=== PATIENT | male | born 1945 | race Caucasian/White ===

== ENCOUNTER 2017-08-11 14:36 | Inpatient (IN) | payer MEDICARE ==
[~2017-08-11] VITALS: Ht 172.7 cm; Wt 87.1 kg
[2017-08-11 14:40] VITALS: BP 99/51; PULSE 65; RESP 18; TEMP 97.9; O2SAT 96
--- NOTE | 2017-08-11 16:04 | PD ---
HPI Chief Complaint: Cold / Flu Symptoms Time Seen by Provider: 16:01 Travel History International Travel<30 days: No Contact w/Intl Traveler<30days: No Traveled to known affect area: No History of Present Illness HPI 72-year-old male came to the emergency room with history of generalized weakness , progressive worsening of not feeling well, sore throat and cough. No history of vomiting or diarrhea. Patient has been having chills and right years as per the . The here has been giving him more elaborate history. Patient appears to be tired and in some distress. Initial vital signs showed blood pressure of 99 systolic. No known sick contacts. No recorded temperature at home. He has been urinating less than usual lately. says he has been very thirsty and drinking a lot of fluid. [facility] Past Medical History Narrative Medical List of his past medical, surgical, social and family history is reviewed from the nursing note. Cardiovascular Problems: Yes Respiratory: Yes Social History Tobacco Use: Yes Allergies-Medications (Allergen,Severity, Reaction): Coded Allergies: No Known Allergies (Unverified , 08/11/17) Comments No known drug allergies. Reported Meds & Prescriptions Reported Meds & Active Scripts Active Reported Advair Diskus Inh (Fluticasone-Salmeterol Inh) 100-50 Mcg/Blist Aer 1 Puff INH BID Rinse mouth after use. Jhrsnmwtbw-Sgcwqujtu-Lnhildvlabhestebqjm 5-160-12.5 Mg Tab 1 Tab PO DAILY Atorvastatin (Atorvastatin Calcium) 40 Mg Tab 40 Mg PO HS Finasteride 5 Mg Tab 5 Mg PO DAILY Do not crush. Nexium (Esomeprazole DR) 40 Mg Capdr 40 Mg PO DAILY Narrative Medication List of her home medications reviewed from the nursing note Review of Systems Except as stated in HPI: all other systems reviewed are Neg Physical Exam Narrative GENERAL: Awake, alert, moderate distress SKIN: Focused skin assessment warm/dry. HEAD: Atraumatic. Normocephalic. EYES: Pupils equal and round. No scleral icterus. No injection or drainage. ENT: No nasal bleeding or discharge. Tongue coated, dry, raw and erythematous pharynx NECK: Trachea midline. No JVD. CARDIOVASCULAR: Regular rate and rhythm. No murmur appreciated. RESPIRATORY: No accessory muscle use. Clear to auscultation. Breath sounds equal bilaterally. GASTROINTESTINAL: Abdomen soft, non-tender, nondistended. Hepatic and splenic margins not palpable. MUSCULOSKELETAL: No obvious deformities. No clubbing. No cyanosis. No edema. NEUROLOGICAL: Awake and alert. No obvious cranial nerve deficits. Motor grossly within normal limits. Normal speech. PSYCHIATRIC: Appropriate mood and affect; insight and judgment normal. Data Data Last Documented VS Orders Orders Complete Blood Count With Diff (08/11/17 16:01) Basic Metabolic Panel (Bmp) (08/11/17 16:01) Urinalysis - C+S If Indicated (08/11/17 16:01) Blood Culture (08/11/17 16:01) Iv Access Insert/Monitor (08/11/17 16:01) Electrocardiogram (08/11/17 16:01) Ecg Monitoring (08/11/17 16:) Oximetry (08/11/17 16:01) Oxygen Administration (08/11/17 16:01) Chest, Single Ap (08/11/17 16:01) Sodium Chloride 0.9% Flush (Ns Flush) (08/11/17 16:15) Group A Rapid Strep Screen (08/11/17 16:01) Sodium Chlor 0.9% 1000 Ml Inj (Ns 1000 M (08/11/17 16:15) Blood Glucose (08/11/17 16:01) Troponin I (08/11/17 16:04) Ceftriaxone Inj (Rocephin Inj) (08/11/17 16:45) Azithromycin Inj (Zithromax Inj) (08/11/17 16:45) Sodium Chlor 0.9% 1000 Ml Inj (Ns 1000 M (08/11/17 16:45) Lactic Acid (08/11/17 16:41) Strep Culture (Group A) (08/11/17 16:10) Admit To Inpatient (08/11/17 ) Code Status (08/11/17 18:09) Vital Signs (Adult) Q4H (08/11/17 18:09) Activity Oob Ad Ashleigh (08/11/17 18:09) Loom Tuner / Telemetry .CONTINUOUS (08/11/17 18:09) Intake + Output FILI.QSHIFT (08/11/17 18:09) Notify Dr: Other (08/11/17 18:09) Diet Heart Healthy (08/11/17 Dinner) Sodium Chlor 0.9% 1000 Ml Inj (Ns 1000 M (08/11/17 18:09) Sodium Chloride 0.9% Flush (Ns Flush) (08/11/17 18:15) Sodium Chloride 0.9% Flush (Ns Flush) (08/11/17 21:00) Acetaminophen (Tylenol) (08/11/17 18:15) Ondansetron Inj (Zofran Inj) (08/11/17 18:15) Creatine Kinase (Cpk) (08/11/17 18:09) Troponin I (08/11/17 18:09) Case Management Consult (08/11/17 18:09) Heparin Inj (Heparin Inj) (08/11/17 20:00) Naloxone Inj (Narcan Inj) (08/11/17 18:15) Docusate Sodium-Senna (Carey-Colace) (08/11/17 21:00) Magnesium Hydroxide Liq (Milk Of Magnesi (08/11/17 18:15) Sennosides (Senokot) (08/11/17 18:15) Bisacodyl Supp (Dulcolax Supp) (08/11/17 18:15) Lactulose Liq (Lactulose Liq) (08/11/17 18:15) Inpatient Certification (08/11/17 ) Ceftriaxone Inj (Rocephin Inj) (08/12/17 18:00) Azithromycin Inj (Zithromax Inj) (08/12/17 17:00) Admit Order (Ed Use Only) (08/11/17 18:16) CKMB (08/11/17 22:42) CKMB% (08/11/17 22:42) Labs Laboratory Tests Test 08/11/17 16:15 08/11/17 16:30 08/11/17 17:20 White Blood Count 7.5 TH/MM3 Red Blood Count 4.40 MIL/MM3 Hemoglobin 13.7 GM/DL Hematocrit 40.7 % Mean Corpuscular Volume 92.6 FL Mean Corpuscular Hemoglobin 31.2 PG Mean Corpuscular Hemoglobin Concent 33.7 % Red Cell Distribution Width 14.0 % Platelet Count 158 TH/MM3 Mean Platelet Volume 9.9 FL Neutrophils (%) (Auto) 77.2 % Lymphocytes (%) (Auto) 10.2 % Monocytes (%) (Auto) 10.8 % Eosinophils (%) (Auto) 1.3 % Basophils (%) (Auto) 0.5 % Neutrophils # (Auto) 5.8 TH/MM3 Lymphocytes # (Auto) 0.8 TH/MM3 Monocytes # (Auto) 0.8 TH/MM3 Eosinophils # (Auto) 0.1 TH/MM3 Basophils # (Auto) 0.0 TH/MM3 CBC Comment AUTO DIFF Differential Comment AUTO DIFF CONFIRMED Blood Urea Nitrogen 37 MG/DL Creatinine 2.28 MG/DL Random Glucose 119 MG/DL Calcium Level 8.9 MG/DL Sodium Level 134 MEQ/L Potassium Level 3.3 MEQ/L Chloride Level 99 MEQ/L Carbon Dioxide Level 25.8 MEQ/L Anion Gap 9 MEQ/L Estimat Glomerular Filtration Rate 28 ML/MIN Troponin I 0.02 NG/ML Lactic Acid Level 1.1 mmol/L MDM Medical Decision Making Medical Screen Exam Complete: Yes Emergency Medical Condition: Yes Medical Record Reviewed: Yes Interpretation(s) Twelve-lead EKG was reviewed by me. Normal sinus rhythm, normal axis, frequent PVCs, PACs. Heart rate of 81 bpm. Differential Diagnosis Strep throat, UTI, sepsis, dehydration Narrative Course 6 PM blood test results were back and patient has significant renal insufficiency/renal failure. Upon asking the patient and his told me that they do not know of any existing renal issues that he has. There is no old labs to compare with. Rapid strep was negative. Chest x-ray shows a pneumonia. Patient was started on IV Rocephin and Zithromax. I've ordered 2 L of IV fluid bolus. Patient has been admitted to the hospitalist. Procedures EKG Prior to Arrival: No Diagnosis Primary Impression: Pneumonia Qualified Codes: J18.1 - Lobar pneumonia, unspecified organism Additional Impressions: Dehydration Renal failure Qualified Codes: N17.9 - Acute kidney failure, unspecified Generalized weakness Pharyngitis Qualified Codes: J02.8 - Acute pharyngitis due to other specified organisms Admitting Information Admitting Physician Requests: Admit Scripts Cefuroxime (Cefuroxime) 500 Mg Tab 500 MG PO BID for Infection, #10 TAB 0 Refills Prov: Rajiv Dixon MD 08/13/17 Azithromycin (Azithromycin) 500 Mg Tab 500 MG PO DAILY for Infection, #5 TAB 0 Refills Prov: Rajiv Dixon MD 08/13/17 Abdirahman Warren MD Aug 11, 2017 16:04
[2017-08-11 16:15] VITALS: RESP 17; O2SAT 95
[2017-08-11] MEDS ORDERED: SODIUM CHLOR 0.9% 1000 ML INJ 1,000 ML IV ONE ×2 (16:15→16:45)
[2017-08-11] MEDS ORDERED: SODIUM CHLORIDE 0.9% FLUSH 10 ML FLUSH IVF PRN (16:15)
--- NOTE | 2017-08-11 16:26 | RADRPT ---
EXAM DATE/TIME: 08/11/2017 16:05 [place] COMPARISON: No previous studies available for comparison. INDICATIONS : Short of breath. MEDICAL HISTORY : None. SURGICAL HISTORY : None. ENCOUNTER: Initial ACUITY: 1 day PAIN SCORE: 0/10 LOCATION: Bilateral chest FINDINGS: A single AP portable semierect view of the chest was obtained and demonstrates patchy opacity project s over the right lung base. The left lung is clear. The heart and mediastinal structures are within n ormal limits. The bony thorax is intact. There are overlying electrocardiogram leads. CONCLUSION: Patchy opacity right lung base of concern for early pneumonia. Patrice Thayer MD on August 11, 2017 at 16:20 Board Certified Radiologist. This report was verified electronically.
[2017-08-11] MEDS ORDERED: AZITHROMYCIN INJ 500 MG in SODIUM CHLOR 0.9% 250 ML INJ 250 ML IV ONE (16:45)
[2017-08-11] MEDS ORDERED: cefTRIAXone INJ 1,000 MG in SODIUM CHLORIDE 0.9% INJ 100 ML IV ONE (16:45)
[2017-08-11 17:13] LABS: AUTOMATED NEUTROPHIL # 5.8 TH/MM3 (1.8-7.7); BASOPHIL % 0.5 % (0.0-2.0); EOSINOPHIL # 0.1 TH/MM3 (0-0.4); EOSINOPHIL % 1.3 % (0.0-4.0); HEMATOCRIT 40.7 % (39.0-51.0); LYMPH % 10.2 % (9.0-44.0); LYMPHOCYTE # 0.8 TH/MM3 (1.0-4.8); MEAN CELL VOLUME 92.6 FL (80.0-100.0); MEAN CORPUSCULAR HEMOGLOBIN 31.2 PG (27.0-34.0); MEAN CORPUSCULAR HGB CONC 33.7 % (32.0-36.0); MONO % 10.8 % (0.0-8.0); NEUT % 77.2 % (16.0-70.0); PLATELET COUNT 158 TH/MM3 (150-450); WHITE BLOOD COUNT 7.5 TH/MM3 (4.0-11.0)
[2017-08-11 17:22] LABS: HEMO FLAGS AUTO DIFF
[2017-08-11 17:37] VITALS: BP 105/51
[2017-08-11 17:48] LABS: BICARBONATE 25.8 MEQ/L (21.0-32.0); POTASSIUM 3.3 MEQ/L (3.5-5.1)
[2017-08-11] MEDS ORDERED: AMLO1TAB97 PO (17:48)
[2017-08-11] MEDS ORDERED: FINA5TAB2 PO (17:48)
[2017-08-11] MEDS ORDERED: NEXI40CA PO (17:48)
[2017-08-11] MEDS ORDERED: ATOR40TA16 PO (17:48)
[2017-08-11] MEDS ORDERED: ADVA100A INH (17:48)
[2017-08-11 17:49] LABS: SCAN/DIFF AUTO DIFF CONFIRMED
--- NOTE | 2017-08-11 18:09 | HHI.HP ---
[facility] Primary Care Physician Jorge Mayen MD Admission Diagnosis Diagnoses: Chief Complaint: Cold / Flu Symptoms Travel History International Travel<30 Days: No Contact w/Intl Traveler <30 Da: No Traveled to Known Affected Are: No History of Present Illness This is a pleasant 72 y/o male who is in the presence of his Mrs. Dayanara Herndon as per her words her started four days ago with Sore throat and chills, Warm sensation and productive cough then on Saturday meaning two days ago he called his Primary Care physician Doctor Tyler and he recommended for Erythromycin but the patient today was cold and his decided to bring him to ER for evaluation, the patient states he is pretty active at home he does exercise on daily bases in am and then goes to the [employer] three times a week, as we know he has COPD, Hyperlipidemia, Hypertension, BPH, and GERD, he continue smoking one pack of cigarettes daily. but stopped smoking many years ago. found with positive Chest x ray for Pneumonia. Review of Systems Constitutional: COMPLAINS OF: Fever, Chills, DENIES: Change in appetite Endocrine: DENIES: Heat/cold intolerance Eyes: DENIES: Blurred vision, Eye pain Respiratory: COMPLAINS OF: Cough, Sputum production Except as stated in HPI: all other systems reviewed are Neg Past Family Social History Past Medical History COPD GERD Hyperlipidemia Hypertension BPH CKD Tobacco dependence Past Surgical History Right foreleg surgery after Accident Appendectomy Reported Medications Reported Meds & Active Scripts Active Reported Advair Diskus Inh (Fluticasone-Salmeterol Inh) 100-50 Mcg/Blist Aer 1 Puff INH BID Rinse mouth after use. Rninchafxz-Bxjrkzhgn-Rnyyfycpyeeskbrawnw 5-160-12.5 Mg Tab 1 Tab PO DAILY Atorvastatin (Atorvastatin Calcium) 40 Mg Tab 40 Mg PO HS Finasteride 5 Mg Tab 5 Mg PO DAILY Do not crush. Nexium (Esomeprazole DR) 40 Mg Capdr 40 Mg PO DAILY Allergies: Coded Allergies: No Known Allergies (Unverified , 08/11/17) Active Ordered Medications Current Medications Medications (Trade) Dose Ordered Sig/Sarah Route Start Time Stop Time Status Last Admin (NS Flush) 2 ml UNSCH PRN IVF 08/11/17 16:15 Sodium Chloride 1,000 ml @ 125 mls/hr Q8H IV 08/11/17 18:09 (NS Flush) 2 ml UNSCH PRN IV FLUSH 08/11/17 18:15 (NS Flush) 2 ml BID IV FLUSH 08/11/17 21:00 (Tylenol) 650 mg Q4H PRN PO 08/11/17 18:15 (Zofran Inj) 4 mg Q6H PRN IVP 08/11/17 18:15 (Heparin Inj) 5,000 units Q12H SQ 08/11/17 20:00 (Narcan Inj) 0.4 mg UNSCH PRN IV PUSH 08/11/17 18:15 (Carey-Colace) 1 tab BID PO 08/11/17 21:00 (Milk Of Magnesia Liq) 30 ml Q12H PRN PO 08/11/17 18:15 (Senokot) 17.2 mg Q12H PRN PO 08/11/17 18:15 (Dulcolax Supp) 10 mg DAILY PRN RECTAL 08/11/17 18:15 (Lactulose Liq) 30 ml DAILY PRN PO 08/11/17 18:15 Ceftriaxone Sodium 1000 mg/ Sodium Chloride 100 ml @ 200 mls/hr Q24H IV 08/12/17 18:00 Azithromycin 500 mg/Sodium Chloride 250 ml @ 250 mls/hr Q24H IV 08/12/17 17:00 Family History Brothers with Diabetes mellitus sister with Breast Cancer. Social History Lives with his smokes one pack of cigarettes daily Physical Exam Vital Signs Vital Signs Date Time Temp Pulse Resp B/P (MAP) Pulse Ox O2 Delivery O2 Flow Rate FiO2 08/11/17 17:37 105/51 (69) 08/11/17 16:15 95 Room Air 08/11/17 16:15 17 95 Room Air 08/11/17 14:40 97.9 65 18 99/51 (67) 96 Physical Exam GENERAL: Well developed in no acute distress. SKIN: No rashes, ecchymoses or lesions. Cool and dry. HEAD: Atraumatic. Normocephalic. No temporal or scalp tenderness. EYES: Pupils equal round and reactive. Extraocular motions intact. No scleral icterus. No injection or drainage. ENT: Nose without bleeding, purulent drainage or septal hematoma. Throat without erythema, tonsillar hypertrophy or exudate. Uvula midline. Airway patent. NECK: Trachea midline. No JVD or lymphadenopathy. Supple, nontender, no meningeal signs. CARDIOVASCULAR: Regular rate and rhythm without murmurs, gallops, or rubs. RESPIRATORY: decreased breath sounds, AP diameter increased. GASTROINTESTINAL: Abdomen soft, non-tender, nondistended. No hepato-splenomegaly , or palpable masses. No guarding. MUSCULOSKELETAL: Extremities without clubbing, cyanosis, or edema. No joint tenderness, effusion, or edema noted. No calf tenderness. Negative Homans sign bilaterally. NEUROLOGICAL: Awake and alert. Cranial nerves II through XII intact. Motor and sensory grossly within normal limits. Five out of 5 muscle strength in all muscle groups. Normal speech. Laboratory Laboratory Tests Test 08/11/17 16:15 08/11/17 16:30 08/11/17 17:20 White Blood Count 7.5 Red Blood Count 4.40 Hemoglobin 13.7 Hematocrit 40.7 Mean Corpuscular Volume 92.6 Mean Corpuscular Hemoglobin 31.2 Mean Corpuscular Hemoglobin Concent 33.7 Red Cell Distribution Width 14.0 Platelet Count 158 Mean Platelet Volume 9.9 Neutrophils (%) (Auto) 77.2 Lymphocytes (%) (Auto) 10.2 Monocytes (%) (Auto) 10.8 Eosinophils (%) (Auto) 1.3 Basophils (%) (Auto) 0.5 Neutrophils # (Auto) 5.8 Lymphocytes # (Auto) 0.8 Monocytes # (Auto) 0.8 Eosinophils # (Auto) 0.1 Basophils # (Auto) 0.0 CBC Comment AUTO DIFF Differential Comment AUTO DIFF CONFIRMED Blood Urea Nitrogen 37 Creatinine 2.28 Random Glucose 119 Calcium Level 8.9 Sodium Level 134 Potassium Level 3.3 Chloride Level 99 Carbon Dioxide Level 25.8 Anion Gap 9 Estimat Glomerular Filtration Rate 28 Troponin I 0.02 Date/Time Source Procedure Growth Status 08/11/17 16:30 Blood Peripheral Aerobic Blood Culture Pending Received 08/11/17 16:30 Blood Peripheral Anaerobic Blood Culture Pending Received 08/11/17 16:10 Throat Group A Streptococcus Screen Pending Received Result Diagram: 08/11/17 1615 08/11/17 1615 Imaging Last Impressions Chest X-Ray 08/11/17 1601 Signed Impressions: Service Date/Time: Friday, August 11, 2017 16:05 - CONCLUSION: Patchy opacity right lung base of concern for early pneumonia. MD Farideh Hernandez VTE Risk Assessment Farideh VTE Risk Assessment: Mod/High Risk (score >= 2) Caprini Risk Assessment Model Point Value = 1 Point Value = 2 Point Value = 3 Point Value = 5 Age 41-60 Minor surgery BMI > 25 kg/m2 Swollen legs Varicose veins or History of unexplained or recurrent spontaneous Oral contraceptives or hormone replacement Sepsis (< 1 month) Serious lung disease, including pneumonia (< 1 month) Abnormal pulmonary function Acute myocardial infarction Congestive heart failure (< 1 month) History of inflammatory bowel disease Medical patient at bed rest Age 61-74 Arthroscopic surgery Major open surgery (> 45 min) Laparoscopic surgery (> 45 min) Malignancy Confined to bed (> 72 hours) Immobilizing plaster cast Central venous access Age >= 75 History of VTE Family history of VTE Factor V Leiden Prothrombin [id number] Lupus anticoagulant Anticardiolipin antibodies Elevated serum homocysteine Heparin-induced thrombocytopenia Other congenital or acquired thrombophilia Stroke (< 1 month) Elective arthroplasty Hip, pelvis, or leg fracture Acute spinal cord injury (< 1 month) Prophylaxis Regimen Total Risk Factor Score Risk Level Prophylaxis Regimen 0-1 Low Early ambulation 2 Moderate Order ONE of the following: *Sequential Compression Device (SCD) *Heparin 5000 units SQ BID 3-4 Higher Order ONE of the following medications: *Heparin 5000 units SQ TID *Enoxaparin/Lovenox 40 mg SQ daily (WT < 150 kg, CrCl > 30 mL/min) *Enoxaparin/Lovenox 30 mg SQ daily (WT < 150 kg, CrCl > 10-29 mL/min) *Enoxaparin/Lovenox 30 mg SQ BID (WT < 150 kg, CrCl > 30 mL/min) AND/OR *Sequential Compression Device (SCD) 5 or more Highest Order ONE of the following medications: *Heparin 5000 units SQ TID (Preferred with Epidurals) *Enoxaparin/Lovenox 40 mg SQ daily (WT < 150 kg, CrCl > 30 mL/min) *Enoxaparin/Lovenox 30 mg SQ daily (WT < 150 kg, CrCl > 10-29 mL/min) *Enoxaparin/Lovenox 30 mg SQ BID (WT < 150 kg, CrCl > 30 mL/min) AND *Sequential Compression Device (SCD) Assessment and Plan Assessment and Plan 1 Early Pneumonia on Ceftriaxone and Azithromycin, follow blood cultures sputum culture 2. Tobacco dependence strongly recommended to stop smoking refused Nicotine replacement. 3. Diarrhea asked for C Diff 4. GERD on gastric protection 5. Hyperlipidemia continue home medicines and follow Lipid profile 6. Hypertension continue Home medicines. 7. BPH by history 8. Acute on chronic CKD by patient we do not have the right Creatinine level but she states she has the laboratory at home and will bring it tomorrow. continue IV fluids today and follow in am tomorrow. DVT prophylaxis with heparin Risk Intern for discharge. Code Status Full Code. Discussed Condition With Abdirahman Warren MD Physician Certification 2 Midnight Certification Type: Admission for Inpatient Services Order for Inpatient Services The services are ordered in accordance with Medicare regulations or non- Medicare payer requirements, as applicable. In the case of services not specified as inpatient-only, they are appropriately provided as inpatient services in accordance with the 2-midnight benchmark. Estimated LOS (days): 3 days is the estimated time the patient will need to remain in the hospital, assuming treatment plan goals are met and no additional complications. Post-Hospital Plan: Home Chepe Worthington MD Aug 11, 2017 18:09
[2017-08-11] MEDS ORDERED: ONDANSETRON HCL 4 MG/2 ML VIAL IVP PRN (18:15)
[2017-08-11] MEDS ORDERED: MAGNESIUM HYDROXIDE SUSP 30 ML CUP PO PRN (18:15)
[2017-08-11] MEDS ORDERED: SODIUM CHLORIDE 0.9% FLUSH 10 ML FLUSH IV FLUSH PRN (18:15)
[2017-08-11] MEDS ORDERED: BISACODYL 10 MG SUPP RECTAL PRN (18:15)
[2017-08-11] MEDS ORDERED: ACETAMINOPHEN 325 MG TAB PO PRN (18:15)
[2017-08-11] MEDS ORDERED: NALOXONE HCL 0.4 MG/ML AMP IV PUSH PRN (18:15)
[2017-08-11] MEDS ORDERED: SENNOSIDES 8.6 MG TAB PO PRN (18:15)
[2017-08-11] MEDS ORDERED: LACTULOSE SYRUP 20 GM/30 ML CUP PO PRN (18:15)
[2017-08-11] MEDS ORDERED: POTASSIUM CHLORIDE 25 MEQ EFFERVESCENT TAB PO ONE (18:30)
[2017-08-11 19:10] LABS: BLOOD, URINE MOD (NEG); COMMENT (UR) CULT NOT INDICATED; CULTURE IF INDICATED CULT NOT INDICATED; GLUCOSE,URINE NEG (NEG); HYALINE CAST, URINE 70 /lpf (RARE); KETONE, URINE NEG (NEG); MUCUS URINE FEW /lpf (OCC); NITRITE,URINE NEG (NEG); SQUAMOUS EPITHELIAL CELL URINE 1 /hpf (0-5); URINE COLOR YELLOW (YELLW/STRAW)
[2017-08-11 20:00] VITALS: BP 142/65; PULSE 87; RESP 20; TEMP 97.6; O2SAT 96
[2017-08-11 20:52] VITALS: O2SAT 93
[2017-08-11] MEDS: HEPARIN SODIUM - SQ 10,000 UNITS/ML VIAL SQ SCH (21:36)
[2017-08-11] MEDS: SODIUM CHLOR 0.9% 1000 ML INJ 1,000 ML IV SCH (21:36)
[2017-08-11] MEDS: guaiFENesin E.R. 600 MG TAB PO SCH (21:36)
[2017-08-11] MEDS: DOCUSATE SODIUM 50 MG/SENNA 8.6 MG TAB PO SCH (21:36)
[2017-08-11] MEDS: SODIUM CHLORIDE 0.9% FLUSH 10 ML FLUSH IV FLUSH SCH (21:37)
[2017-08-12] VITALS (10 sets, daily range): BP systolic 101–156; BP diastolic 54–85; PULSE 62–87; RESP 18–22; TEMP 97.2–99.2; O2SAT 94–96
[2017-08-12] LABS: CKMB 6.1 NG/ML (0.5-3.6)
[2017-08-12] MEDS: RESP: ALBUTEROL 2.5 MG/IPRATROPIUM 0.5 MG NEB (SCH) NEB ×6 (00:31→23:49)
[2017-08-12] MEDS: SODIUM CHLOR 0.9% 1000 ML INJ 1,000 ML IV SCH (02:09)
[2017-08-12 05:13] LABS: AUTOMATED NEUTROPHIL # 3.6 TH/MM3 (1.8-7.7); BASOPHIL % 0.4 % (0.0-2.0); EOSINOPHIL # 0.2 TH/MM3 (0-0.4); EOSINOPHIL % 3.6 % (0.0-4.0); HEMATOCRIT 36.5 % (39.0-51.0); HEMO FLAGS DIFF FINAL; LYMPH % 21.4 % (9.0-44.0); LYMPHOCYTE # 1.2 TH/MM3 (1.0-4.8); MEAN CORPUSCULAR HEMOGLOBIN 31.4 PG (27.0-34.0); MEAN CORPUSCULAR HGB CONC 34.2 % (32.0-36.0); NEUT % 63.6 % (16.0-70.0); PLATELET COUNT 144 TH/MM3 (150-450); RED BLOOD COUNT 3.97 MIL/MM3 (4.50-5.90); RED CELL DISTRIBUTION WIDTH 13.9 % (11.6-17.2); WHITE BLOOD COUNT 5.7 TH/MM3 (4.0-11.0)
[2017-08-12 05:59] LABS: BICARBONATE 23.9 MEQ/L (21.0-32.0); MAGNESIUM 2.4 MG/DL (1.5-2.5); POTASSIUM 3.4 MEQ/L (3.5-5.1)
[2017-08-12] MEDS ORDERED: POTASSIUM CHLORIDE 25 MEQ EFFERVESCENT TAB PO ONE (06:15)
[2017-08-12] MEDS: SODIUM CHLORIDE 0.9% FLUSH 10 ML FLUSH IV FLUSH SCH ×2 (09:00→21:40)
[2017-08-12] MEDS: guaiFENesin E.R. 600 MG TAB PO SCH ×2 (09:39→21:40)
[2017-08-12] MEDS: DOCUSATE SODIUM 50 MG/SENNA 8.6 MG TAB PO SCH ×2 (09:40→21:00)
[2017-08-12] MEDS: HEPARIN SODIUM - SQ 10,000 UNITS/ML VIAL SQ SCH ×2 (09:42→21:40)
--- NOTE | 2017-08-12 10:57 | HHI.PR ---
Subjective Remarks Follow up pneumonia, renal failure. Patient states that he is not comfortable and did not sleep well last night. Denies chest pain, dyspnea. Cough is nonproductive. Objective Vitals Vital Signs Date Time Temp Pulse Resp B/P (MAP) Pulse Ox O2 Delivery O2 Flow Rate FiO2 08/12/17 08:09 97.7 87 20 130/72 (91) 94 08/12/17 03:48 99.2 62 18 101/54 (70) 94 08/12/17 00:00 97.7 73 22 122/60 (80) 96 08/11/17 20:52 93 21 08/11/17 20:00 97.6 87 20 142/65 (90) 96 08/11/17 19:11 08/11/17 17:37 105/51 (69) 08/11/17 16:15 95 Room Air 08/11/17 16:15 17 95 Room Air 08/11/17 14:40 97.9 65 18 99/51 (67) 96 I/O 08/11/17 08/11/17 08/11/17 08/12/17 08/12/17 08/12/17 07:00 15:00 23:00 07:00 15:00 23:00 Intake Total 650 ml Output Total 600 ml Balance 650 ml -600 ml Intake Oral 650 ml Output Urine Total 600 ml # Voids 2 # Bowel Movements 0 0 Result Diagram: 08/12/17 0505 08/12/17 0505 Imaging Last Impressions Chest X-Ray 08/11/17 1601 Signed Impressions: Service Date/Time: Friday, August 11, 2017 16:05 - CONCLUSION: Patchy opacity right lung base of concern for early pneumonia. Patrice Thayer MD Objective Remarks General: No acute distress. Heart: Regular rate and rhythm. No murmur. Lungs: Clear to auscultation bilaterally. No wheezes, rales, or rhonchi. Breathing is nonlabored. Abdomen: Soft, nontender, nondistended. Extremities: No lower extremity edema. Psych: Alert and oriented. Procedures None Urinary Catheter: No Vascular Central Line Catheter: No A/P Problem List: (1) GERD (gastroesophageal reflux disease) ICD Code: K21.9 - Gastro-esophageal reflux disease without esophagitis (2) Acute kidney injury ICD Code: N17.9 - Acute kidney failure, unspecified (3) Pneumonia ICD Code: J18.9 - Pneumonia, unspecified organism Status: Acute (4) Dehydration ICD Code: E86.0 - Dehydration Status: Acute (5) Arrhythmia ICD Code: I49.9 - Cardiac arrhythmia, unspecified Assessment and Plan 1. Pneumonia: Continue Rocephin, azithromycin. Blood cultures and sputum culture are pending. Oxygen as needed. 2. Acute kidney injury: Likely secondary to dehydration. Patient's to bring outpatient lab results to determine if patient has chronic kidney disease. Creatinine improving with IV hydration. 3. Tobacco abuse: Patient has been counseled to quit smoking. 4. Hyperlipidemia: Continue statin. 5. Hypertension: Continue home medications. 6. GERD: Continue PPI. 7. BPH: Continue finasteride. 8. DVT prophylaxis: Heparin. Problem Qualifiers (1) Pneumonia: Qualified Codes: J18.1 - Lobar pneumonia, unspecified organism Rajiv Dixon MD Aug 12, 2017 10:57
[2017-08-12] MEDS: NS + KCL 20 MEQ INJ 1,000 ML IV SCH ×2 (11:00→21:41)
--- NOTE | 2017-08-12 13:49 | EKG ---
Date Performed: 08/11/2017 Time Performed: 16:43:22 PTAGE: 72 years EKG: Sinus rhythm WITH FREQUENT VENTRICULAR PREMATURE COMPLEXES WITH OCCASIONAL SUPRAVENTRICULAR PREMATURE COMPLEXES I NCOMPLETE RIGHT BUNDLE BRANCH BLOCK ABNORMAL RHYTHM ECG NO PREVIOUS TRACING DOCTOR: Samy Llanos Interpretating Date/Time 08/12/2017 13:47:29
[2017-08-12] MEDS: FINASTERIDE 5 MG TAB PO SCH (13:54)
[2017-08-12] MEDS: PANTOPRAZOLE SOD 40 MG DELAYED RELEASE TAB PO SCH (13:54)
--- NOTE | 2017-08-12 15:26 | MB ---
cc: WHITNEY GAVIRIA DATE OF CONSULTATION: 08/12/2017 HISTORY OF PRESENT ILLNESS A 72-year-old white male with no previous cardiac history. He developed sore throat, fevers and chills. He has not had any chest pain or shortness of breath. He has history of COPD. He was diagnosed with pneumonia. He was found to have frequent PVCs on his telemetry. PAST MEDICAL HISTORY Positive for: 1. COPD. 2. Hypertension. 3. Dyslipidemia. 4. Gastroesophageal reflux disease. 5. BPH. 6. Chronic kidney disease. 7. Appendectomy. 8. History of right leg surgery. MEDICATIONS 1. Nexium. 2. Finasteride. 3. Atorvastatin. 4. Amlodipine. 5. Valsartan. 6. Hydrochlorothiazide. 7. Advair Diskus. ALLERGIES None. SOCIAL HISTORY The patient does not smoke but used to smoke in the past. He does not drink alcohol. He is and accompanied by his . FAMILY HISTORY Family history is negative for heart disease. REVIEW OF SYSTEMS Otherwise, negative. PHYSICAL EXAMINATION VITAL SIGNS: Blood pressure 125/60, pulse 71 and regular. HEENT: Negative. NECK: 2+ carotid upstrokes. No bruits. LUNGS: Clear with decreased breath sounds. HEART: Regular with no murmur, gallop or rub. ABDOMEN: Soft. HEART: Regular with no murmur, gallop, rub. ABDOMEN: Soft. No bruits. EXTREMITIES: Without edema. 2+ distal pulses. NEUROLOGIC: Grossly nonfocal. EKG Was reviewed and showed normal sinus rhythm, normal axis, PVCs and incomplete right bundle-branch block. LABORATORY DATA Hemoglobin 12.5, potassium 3.4, creatinine 1.6. CK 1440, troponin negative times four. DIAGNOSIS 1. Ventricular ectopy. 2. Pneumonia. 3. Dehydration. 4. Acute renal insufficiency. 5. Gastroesophageal reflux disease. 6. Hypertension. 7. Dyslipidemia. DISPOSITION Mr. Srinivasan will be monitored on telemetry. We will obtain echocardiogram to evaluate his left ventricular function. Will also monitor his electrolytes and his renal function. He will be treated for pneumonia with antibiotics. I will follow him for cardiology during his hospitalization. This was discussed with the patient and his and they understand the plan. MD DARCI Temple/TLL /2:52 PM /3:13 PM
[2017-08-12] MEDS: cefTRIAXone INJ 1,000 MG in SODIUM CHLORIDE 0.9% INJ 100 ML IV SCH (17:01)
[2017-08-12] MEDS: AZITHROMYCIN INJ 500 MG in SODIUM CHLOR 0.9% 250 ML INJ 250 ML IV SCH (18:23)
[2017-08-12] MEDS: BUDESONIDE-FORMOTEROL 80/4.5 MCG INHALER INH SCH (21:00)
[2017-08-12] MEDS: ATORVASTATIN 40 MG TAB PO SCH (21:40)
[2017-08-13] VITALS (9 sets, daily range): BP systolic 123–147; BP diastolic 55–67; PULSE 72–110; RESP 16–20; TEMP 96.7–98.3; O2SAT 93–98
[2017-08-13] MEDS: RESP: ALBUTEROL 2.5 MG/IPRATROPIUM 0.5 MG NEB (SCH) NEB ×6 (03:17→23:46)
[2017-08-13] MEDS: NS + KCL 20 MEQ INJ 1,000 ML IV SCH ×2 (03:50→22:39)
[2017-08-13] MEDS ORDERED: [UNRECOGNIZED DRUG - OTHER] PO SCH (09:00)
[2017-08-13] MEDS: SODIUM CHLORIDE 0.9% FLUSH 10 ML FLUSH IV FLUSH SCH ×2 (09:00→22:37)
[2017-08-13 09:03] LABS: AUTOMATED NEUTROPHIL # 3.7 TH/MM3 (1.8-7.7); BASOPHIL % 0.5 % (0.0-2.0); EOSINOPHIL # 0.2 TH/MM3 (0-0.4); HEMATOCRIT 36.2 % (39.0-51.0); HEMO FLAGS DIFF FINAL; LYMPH % 19.3 % (9.0-44.0); LYMPHOCYTE # 1.1 TH/MM3 (1.0-4.8); MEAN CELL VOLUME 93.2 FL (80.0-100.0); MEAN CORPUSCULAR HGB CONC 34.3 % (32.0-36.0); MONO % 9.3 % (0.0-8.0); NEUT % 66.9 % (16.0-70.0); PLATELET COUNT 141 TH/MM3 (150-450); RED BLOOD COUNT 3.89 MIL/MM3 (4.50-5.90); RED CELL DISTRIBUTION WIDTH 14.1 % (11.6-17.2); WHITE BLOOD COUNT 5.6 TH/MM3 (4.0-11.0)
[2017-08-13 09:26] LABS: BICARBONATE 22.8 MEQ/L (21.0-32.0); POTASSIUM 3.7 MEQ/L (3.5-5.1)
[2017-08-13] MEDS: HEPARIN SODIUM - SQ 10,000 UNITS/ML VIAL SQ SCH ×2 (09:54→22:37)
[2017-08-13] MEDS: DOCUSATE SODIUM 50 MG/SENNA 8.6 MG TAB PO SCH ×2 (09:54→22:32)
[2017-08-13] MEDS: guaiFENesin E.R. 600 MG TAB PO SCH ×2 (09:54→22:32)
[2017-08-13] MEDS: PANTOPRAZOLE SOD 40 MG DELAYED RELEASE TAB PO SCH (09:54)
[2017-08-13] MEDS: amLODIPine BESYLATE 5 MG TAB PO SCH (09:54)
[2017-08-13] MEDS: VALSARTAN 160 MG TAB PO SCH (09:55)
[2017-08-13] MEDS: HYDROCHLOROTHIAZIDE 12.5 MG CAP PO SCH (09:55)
[2017-08-13] MEDS: FINASTERIDE 5 MG TAB PO SCH (09:55)
[2017-08-13] MEDS: BUDESONIDE-FORMOTEROL 80/4.5 MCG INHALER INH SCH ×2 (09:56→22:33)
--- NOTE | 2017-08-13 13:10 | HHI.PR ---
Subjective Remarks Follow up pneumonia, renal failure, arrhythmia. Patient has no complaints at this time. He wants to go home. Denies chest pain, dyspnea, cough, lightheadedness, dizziness. Objective Vitals Vital Signs Date Time Temp Pulse Resp B/P (MAP) Pulse Ox O2 Delivery O2 Flow Rate FiO2 08/13/17 12:06 98.1 79 18 144/67 (92) 95 08/13/17 11:00 110 08/13/17 08:31 97.4 79 18 143/64 (90) 94 08/13/17 04:00 97.4 78 18 126/61 (82) 94 08/13/17 00:00 98.1 89 20 123/55 (77) 93 08/12/17 23:45 85 08/12/17 21:23 97.8 64 20 139/71 (93) 96 08/12/17 20:32 96 08/12/17 20:00 97.2 82 18 156/85 (108) 96 08/12/17 16:03 96 08/12/17 15:52 97.4 71 20 130/64 (86) 95 I/O 08/12/17 08/12/17 08/12/17 08/13/17 08/13/17 08/13/17 07:00 15:00 23:00 07:00 15:00 23:00 Intake Total 600 ml 1450 ml 400 ml Output Total 600 ml Balance -600 ml 600 ml 1450 ml 400 ml Intake Oral 600 ml IV Total 1450 ml 400 ml Output Urine Total 600 ml # Voids 5 2 4 # Bowel Movements 0 1 Result Diagram: 08/13/17 0840 08/13/17 0840 Imaging Last Impressions Chest X-Ray 08/11/17 1601 Signed Impressions: Service Date/Time: Friday, August 11, 2017 16:05 - CONCLUSION: Patchy opacity right lung base of concern for early pneumonia. Patrice Thayer MD Objective Remarks General: No acute distress. Heart: Irregular rhythm. No murmur. Lungs: Clear to auscultation bilaterally. No wheezes, rales, or rhonchi. Breathing is nonlabored. Abdomen: Soft, nontender, nondistended. Extremities: No lower extremity edema. Psych: Alert and oriented. Procedures None Urinary Catheter: No Vascular Central Line Catheter: No A/P Problem List: (1) GERD (gastroesophageal reflux disease) ICD Code: K21.9 - Gastro-esophageal reflux disease without esophagitis (2) Acute kidney injury ICD Code: N17.9 - Acute kidney failure, unspecified (3) Pneumonia ICD Code: J18.9 - Pneumonia, unspecified organism Status: Acute (4) Dehydration ICD Code: E86.0 - Dehydration Status: Acute (5) Arrhythmia ICD Code: I49.9 - Cardiac arrhythmia, unspecified Assessment and Plan 1. Pneumonia: Continue Rocephin, azithromycin. Blood cultures and sputum culture are pending. Stable on room air. 2. Acute kidney injury: Likely secondary to dehydration. Improved. 3. Tobacco abuse: Patient has been counseled to quit smoking. 4. Hyperlipidemia: Continue statin. 5. Hypertension: Continue home medications. 6. GERD: Continue PPI. 7. BPH: Continue finasteride. 8. DVT prophylaxis: Heparin. 9. Arrhythmia: Appreciate cardiology recommendations. Echocardiogram pending. Discussed with Dr. Vaughn. Discharge Planning Plan for discharge home when cleared by cardiology. Problem Qualifiers (1) Pneumonia: Qualified Codes: J18.1 - Lobar pneumonia, unspecified organism Rajiv Dixon MD Aug 13, 2017 13:10
--- NOTE | 2017-08-13 14:39 | PD.CARD.PN ---
Subjective Subjective Remarks No CP or SOB, feels well Objective Medications Administered Medications Medications (Trade) Dose Ordered Sig/Sarah Route PRN Reason Start Time Stop Time Status Last Admin Dose Admin Sodium Chloride (NS Flush) 2 ml BID IV FLUSH 08/11/17 21:00 08/12/17 21:40 Heparin Sodium (Porcine) (Heparin Inj) 5,000 units Q12H SQ 08/11/17 20:00 08/13/17 09:54 Senna/Docusate Sodium (Carey-Colace) 1 tab BID PO 08/11/17 21:00 08/13/17 09:54 Ceftriaxone Sodium 1000 mg/ Sodium Chloride 100 ml @ 200 mls/hr Q24H IV 08/12/17 18:00 08/12/17 17:01 Azithromycin 500 mg/Sodium Chloride 250 ml @ 250 mls/hr Q24H IV 08/12/17 17:00 08/12/17 18:23 Albuterol/ Ipratropium (Duoneb Neb) 1 ampule Q4HR NEB NEB 08/11/17 20:00 08/13/17 11:55 Guaifenesin (Mucinex Er) 600 mg BID PO 08/11/17 21:00 08/13/17 09:54 Potassium Chloride/Sodium Chloride 1,000 ml @ 84 mls/hr [id number] IV 08/12/17 11:00 08/13/17 03:50 Atorvastatin Calcium (Lipitor) 40 mg HS PO 08/12/17 21:00 08/12/17 21:40 Finasteride (Proscar) 5 mg DAILY PO 08/12/17 11:00 08/13/17 09:55 Pantoprazole Sodium (Protonix) 40 mg DAILY PO 08/12/17 12:00 08/13/17 09:54 Budesonide/ Formoterol Fumarate (Symbicort 80-4.5 Mcg Inh) 2 puff BID INH 08/12/17 21:00 08/13/17 09:56 Amlodipine Besylate (Norvasc) 5 mg DAILY PO 08/13/17 09:00 08/13/17 09:54 Valsartan (Diovan) 160 mg DAILY PO 08/13/17 09:00 08/13/17 09:55 Hydrochlorothiazide (Microzide) 12.5 mg DAILY PO 08/13/17 09:00 08/13/17 09:55 Vital Signs / I&O Vital Signs Date Time Temp Pulse Resp B/P (MAP) Pulse Ox O2 Delivery O2 Flow Rate FiO2 08/13/17 12:06 98.1 79 18 144/67 (92) 95 08/13/17 11:00 110 08/13/17 08:31 97.4 79 18 143/64 (90) 94 08/13/17 04:00 97.4 78 18 126/61 (82) 94 08/13/17 00:00 98.1 89 20 123/55 (77) 93 08/12/17 23:45 85 08/12/17 21:23 97.8 64 20 139/71 (93) 96 08/12/17 20:32 96 08/12/17 20:00 97.2 82 18 156/85 (108) 96 08/12/17 16:03 96 08/12/17 15:52 97.4 71 20 130/64 (86) 95 I/O 08/12/17 08/12/17 08/12/17 08/13/17 08/13/17 08/13/17 07:00 15:00 23:00 07:00 15:00 23:00 Intake Total 600 ml 1450 ml 400 ml Output Total 600 ml Balance -600 ml 600 ml 1450 ml 400 ml Intake Oral 600 ml IV Total 1450 ml 400 ml Output Urine Total 600 ml # Voids 5 2 4 # Bowel Movements 0 1 Physical Exam GENERAL: In NAD. SKIN: Warm and dry. HEAD: Normocephalic. EYES: No scleral icterus. No injection or drainage. NECK: Supple, trachea midline. No JVD or lymphadenopathy. CARDIOVASCULAR: Regular rate and rhythm without murmurs, gallops, or rubs. RESPIRATORY: Breath sounds equal bilaterally. No accessory muscle use. GASTROINTESTINAL: Abdomen soft, non-tender, nondistended. MUSCULOSKELETAL: No cyanosis, or edema. Laboratory Laboratory Tests Test 08/13/17 08:40 White Blood Count 5.6 TH/MM3 Red Blood Count 3.89 MIL/MM3 Hemoglobin 12.4 GM/DL Hematocrit 36.2 % Mean Corpuscular Volume 93.2 FL Mean Corpuscular Hemoglobin 32.0 PG Mean Corpuscular Hemoglobin Concent 34.3 % Red Cell Distribution Width 14.1 % Platelet Count 141 TH/MM3 Mean Platelet Volume 9.6 FL Neutrophils (%) (Auto) 66.9 % Lymphocytes (%) (Auto) 19.3 % Monocytes (%) (Auto) 9.3 % Eosinophils (%) (Auto) 4.0 % Basophils (%) (Auto) 0.5 % Neutrophils # (Auto) 3.7 TH/MM3 Lymphocytes # (Auto) 1.1 TH/MM3 Monocytes # (Auto) 0.5 TH/MM3 Eosinophils # (Auto) 0.2 TH/MM3 Basophils # (Auto) 0.0 TH/MM3 CBC Comment DIFF FINAL Differential Comment Blood Urea Nitrogen 23 MG/DL Creatinine 1.17 MG/DL Random Glucose 124 MG/DL Calcium Level 8.0 MG/DL Phosphorus Level 2.0 MG/DL Sodium Level 141 MEQ/L Potassium Level 3.7 MEQ/L Chloride Level 109 MEQ/L Carbon Dioxide Level 22.8 MEQ/L Anion Gap 9 MEQ/L Estimat Glomerular Filtration Rate 61 ML/MIN Assessment and Plan Problem List: (1) Ventricular ectopy ICD Codes: I49.3 - Ventricular premature depolarization (2) Dehydration ICD Codes: E86.0 - Dehydration Status: Acute (3) Acute kidney injury ICD Codes: N17.9 - Acute kidney failure, unspecified (4) Pneumonia ICD Codes: J18.9 - Pneumonia, unspecified organism Status: Acute (5) Generalized weakness ICD Codes: R53.1 - Weakness Status: Acute (6) GERD (gastroesophageal reflux disease) ICD Codes: K21.9 - Gastro-esophageal reflux disease without esophagitis Assessment and Plan Tele with NSR and PVCs. Asymptomatic. ECHO today, if unremarkable, DC home as planned. Will schedule outpt f/u. Problem Qualifiers (1) Pneumonia: Qualified Codes: J18.1 - Lobar pneumonia, unspecified organism Elinor Vaughn MD Aug 13, 2017 14:39
[2017-08-13] MEDS ORDERED: AZIT500T2 PO (16:18)
[2017-08-13] MEDS ORDERED: CEFU1TAB20 PO (16:18)
--- NOTE | 2017-08-13 16:19 | HHI.DCPOC ---
Discharge Care Plan Diagnosis: (1) Ventricular ectopy (2) Acute kidney injury (3) GERD (gastroesophageal reflux disease) (4) Pneumonia (5) Dehydration Goals to Promote Your Health * To prevent worsening of your condition and complications * To maintain your health at the optimal level Directions to Meet Your Goals Take your medications as prescribed Follow your dietary instruction Follow activity as directed Keep your appointments as scheduled Take your immunizations and boosters as scheduled If your symptoms worsen call your PCP, if no PCP go to Urgent Care Center or Emergency Room Smoking is Dangerous to Your Health. Avoid second hand smoke Call the 24-hour hour crisis hotline for domestic abuse at Rajiv Dixon MD Aug 13, 2017 16:19
[2017-08-13] MEDS: AZITHROMYCIN INJ 500 MG in SODIUM CHLOR 0.9% 250 ML INJ 250 ML IV SCH (16:32)
--- NOTE | 2017-08-13 17:25 | ECHRPT ---
Indication: CONCLUSIONS The left ventricular systolic function is normal with an estimated ejection fraction in the range of 55-60%. Normal left ventricular size. Mild concentric left ventricular hypertrophy. No regional wall motion abnormalities are present. The left atrial size is upper limits of normal. Trace mitral valve regurgitation. There is trace tricuspid valve regurgitation. The estimated pulmonary arterial pressure is 41.8 mmHg. Trivial pulmonary valve regurgitation. BP: 144 / 67 HR: 79 Rhythm: Other MEASUREMENTS (Male / Female) Normal Values Technical Quality:Fair 2D ECHO LV Diastolic Diameter PLAX 4.1 cm 4.2 - 5.9 / 3.9 - 5.3 cm LV Systolic Diameter PLAX 3.4 cm IVS Diastolic Thickness 1.5 cm 0.6 - 1.0 / 0.6 - 0.9 cm LVPW Diastolic Thickness 1.5 cm 0.6 - 1.0 / 0.6 - 0.9 cm LV Relative Wall Thickness 0.7 RV Internal Dim ED PLAX 2.5 cm LVOT Diameter 2.0 cm LA Systolic Diameter LX 4.3 cm 3.0 - 4.0 / 2.7 - 3.8 cm LV Ejection Fraction MOD 4C 47.5 % LV Cardiac Index MOD 4C 1817.5 cm/minm LV Ejection Fraction 4C AL 49.1 % LV Cardiac Index 4C AL 1963.5 cm/minm M-MODE Aortic Root Diameter MM 2.9 cm LA Systolic Diameter MM 4.6 cm LA Ao Ratio MM 1.6 AV Cusp Separation MM 1.9 cm DOPPLER AV Peak Velocity 144.0 cm/s AV Peak Gradient 8.3 mmHg LVOT Peak Velocity 106.0 cm/s LVOT Peak Gradient 4.5 mmHg AV Area Cont Eq pk 2.3 cm MV Area PHT 4.8 cm Mitral E Point Velocity 85.4 cm/s Mitral A Point Velocity 82.9 cm/s Mitral E to A Ratio 1.0 LV E' Lateral Velocity 8.6 cm/s Mitral E to LV E' Lateral Ratio 10.0 LV E' Septal Velocity 6.6 cm/s Mitral E to LV E' Septal Ratio 12.9 TR Peak Velocity 282.0 cm/s TR Peak Gradient 31.8 mmHg Right Atrial Pressure 10.0 mmHg Pulmonary Artery Systolic Pressu 41.8 mmHg Right Ventricular Systolic Press 41.8 mmHg PV Peak Velocity 113.0 cm/s PV Peak Gradient 5.1 mmHg FINDINGS LEFT VENTRICLE The left ventricular systolic function is normal with an estimated ejection fraction in the range of 55-60%. Normal left ventricular size. Mild concentric left ventricular hypertrophy. No regional wall motion abnormalities are present. RIGHT VENTRICLE Normal right ventricular size and systolic function. LEFT ATRIUM The left atrial size is upper limits of normal. RIGHT ATRIUM The right atrial size is normal. ATRIAL SEPTUM Normal atrial septal thickness without atrial level shunting by limited color doppler interrogation. AORTA The aortic root and proximal ascending aorta are normal in size on limited imaging. MITRAL VALVE Trace mitral valve regurgitation. AORTIC VALVE Trileaflet aortic valve. No aortic valve stenosis or regurgitation. TRICUSPID VALVE There is trace tricuspid valve regurgitation. The estimated pulmonary arterial pressure is 41.8 mmHg. PULMONARY VALVE Trivial pulmonary valve regurgitation. VESSELS The inferior vena cava is normal in size. PERICARDIUM No pericardial effusion. Navi Mace MD, FACC (Electronically Signed) Final Date:13 August 2017 17:24
[2017-08-13] MEDS: cefTRIAXone INJ 1,000 MG in SODIUM CHLORIDE 0.9% INJ 100 ML IV SCH (18:27)
[2017-08-13] MEDS: ATORVASTATIN 40 MG TAB PO SCH (22:32)
[2017-08-14 02:26] VITALS: PULSE 83
[2017-08-14] MEDS: RESP: ALBUTEROL 2.5 MG/IPRATROPIUM 0.5 MG NEB (SCH) NEB ×2 (02:54→07:54)
[2017-08-14 04:00] VITALS: BP 127/64; PULSE 76; RESP 18; TEMP 98; O2SAT 96
[2017-08-14] MEDS: HEPARIN SODIUM - SQ 10,000 UNITS/ML VIAL SQ SCH (08:00)
[2017-08-14] MEDS: FINASTERIDE 5 MG TAB PO SCH (08:03)
[2017-08-14] MEDS: PANTOPRAZOLE SOD 40 MG DELAYED RELEASE TAB PO SCH (08:03)
[2017-08-14] MEDS: guaiFENesin E.R. 600 MG TAB PO SCH (08:03)
[2017-08-14] MEDS: HYDROCHLOROTHIAZIDE 12.5 MG CAP PO SCH (08:03)
[2017-08-14] MEDS: VALSARTAN 160 MG TAB PO SCH (08:03)
[2017-08-14] MEDS: DOCUSATE SODIUM 50 MG/SENNA 8.6 MG TAB PO SCH (08:03)
[2017-08-14] MEDS: SODIUM CHLORIDE 0.9% FLUSH 10 ML FLUSH IV FLUSH SCH (08:04)
[2017-08-14] MEDS: BUDESONIDE-FORMOTEROL 80/4.5 MCG INHALER INH SCH (08:04)
[2017-08-14] MEDS: amLODIPine BESYLATE 5 MG TAB PO SCH (08:05)
--- NOTE | 2017-08-14 08:35 | HHI.DS ---
cc: Jorge Mayen MD Discharge Summary Admission Date Aug 11, 2017 at 18:18 Discharge Date: Aug 14, 2017 Admitting Diagnosis Pneumonia (1) GERD (gastroesophageal reflux disease) ICD Code: K21.9 - Gastro-esophageal reflux disease without esophagitis (2) Acute kidney injury ICD Code: N17.9 - Acute kidney failure, unspecified (3) Pneumonia ICD Code: J18.9 - Pneumonia, unspecified organism Status: Acute (4) Dehydration ICD Code: E86.0 - Dehydration Status: Acute (5) Arrhythmia ICD Code: I49.9 - Cardiac arrhythmia, unspecified Procedures None Brief History - From Admission This is a pleasant 72 y/o male who is in the presence of his Mrs. Dayanara Herndon as per her words her started four days ago with Sore throat and chills, Warm sensation and productive cough then on Saturday meaning two days ago he called his Primary Care physician Doctor Tyler and he recommended for Erythromycin but the patient today was cold and his decided to bring him to ER for evaluation, the patient states he is pretty active at home he does exercise on daily bases in am and then goes to the [employer] three times a week, as we know he has COPD, Hyperlipidemia, Hypertension, BPH, and GERD, he continue smoking one pack of cigarettes daily. but stopped smoking many years ago. found with positive Chest x ray for Pneumonia. CBC/BMP: 08/13/17 0840 08/13/17 0840 Significant Findings Laboratory Tests Test 08/11/17 16:15 08/11/17 16:30 08/11/17 17:20 08/11/17 18:25 Red Blood Count 4.40 MIL/MM3 (4.50-5.90) Neutrophils (%) (Auto) 77.2 % (16.0-70.0) Monocytes (%) (Auto) 10.8 % (0.0-8.0) Lymphocytes # (Auto) 0.8 TH/MM3 (1.0-4.8) Blood Urea Nitrogen 37 MG/DL (7-18) Creatinine 2.28 MG/DL (0.60-1.30) Random Glucose 119 MG/DL (74-106) Sodium Level 134 MEQ/L (136-145) Potassium Level 3.3 MEQ/L (3.5-5.1) Estimat Glomerular Filtration Rate 28 ML/MIN (>89) Urine Turbidity HAZY (CLEAR) Urine Protein 30 mg/dL (NEG-TRACE) Urine Occult Blood MOD (NEG) Urine Mucus FEW /lpf (OCC) Test 08/11/17 22:42 08/12/17 05:05 08/12/17 09:56 08/13/17 08:40 Total Creatine Kinase 1440 U/L (39-308) Creatine Kinase MB 6.1 NG/ML (0.5-3.6) Red Blood Count 3.97 MIL/MM3 (4.50-5.90) 3.89 MIL/MM3 (4.50-5.90) Hemoglobin 12.5 GM/DL (13.0-17.0) 12.4 GM/DL (13.0-17.0) Hematocrit 36.5 % (39.0-51.0) 36.2 % (39.0-51.0) Platelet Count 144 TH/MM3 (150-450) 141 TH/MM3 (150-450) Monocytes (%) (Auto) 11.0 % (0.0-8.0) 9.3 % (0.0-8.0) Blood Urea Nitrogen 33 MG/DL (7-18) 23 MG/DL (7-18) Creatinine 1.59 MG/DL (0.60-1.30) Random Glucose 112 MG/DL (74-106) 124 MG/DL (74-106) Calcium Level 7.9 MG/DL (8.5-10.1) 8.0 MG/DL (8.5-10.1) Potassium Level 3.4 MEQ/L (3.5-5.1) Estimat Glomerular Filtration Rate 43 ML/MIN (>89) 61 ML/MIN (>89) Phosphorus Level 2.0 MG/DL (2.5-4.9) Chloride Level 109 MEQ/L (98-107) Imaging Last Impressions Chest X-Ray 08/11/17 1601 Signed Impressions: Service Date/Time: Friday, August 11, 2017 16:05 - CONCLUSION: Patchy opacity right lung base of concern for early pneumonia. Patrice Thayer MD PE at Discharge General: No acute distress. Heart: Irregular rhythm. No murmur. Lungs: Clear to auscultation bilaterally. No wheezes, rales, or rhonchi. Breathing is nonlabored. Abdomen: Soft, nontender, nondistended. Extremities: No lower extremity edema. Psych: Alert and oriented. Pt update on day of discharge The patient has no complaints at this time. He wants to go home today. Denies chest pain, dyspnea, cough. Hospital Course The patient was admitted for management of pneumonia. He was started on IV antibiotics. His respiratory status improved. He was noted on cardiac telemetry to have multiple ectopic beats. He remained asymptomatic. Cardiology was consulted. Echocardiogram was done. Patient was cleared for discharge by cardiology. He was felt to be stable for discharge home. Pt Condition on Discharge: Stable Discharge Disposition: Discharge Home Discharge Time: > 30 minutes Discharge Instructions DIET: Follow Instructions for: Heart Healthy Diet Activities you can perform: Regular-No Restrictions Follow up Referrals: Cardiology - 1 Week with Elinor Vaughn MD PCP Follow-up - 1 Week New Medications: Azithromycin (Azithromycin) 500 Mg Tab 500 MG PO DAILY for Infection, #5 TAB 0 Refills Cefuroxime (Cefuroxime) 500 Mg Tab 500 MG PO BID for Infection, #10 TAB 0 Refills Continued Medications: Lukzxaazom-Bgnsmrsph-Hbnjnascalbywwfogeg (Amlodipine-Valsartan- Hydrochlorothiazide) 5-160-12.5 Mg Tab 1 TAB PO DAILY for Blood Pressure Management, #30 TAB 0 Refills Atorvastatin (Atorvastatin) 40 Mg Tab 40 MG PO HS for Cholesterol Management, #30 TAB [address] (Nexium) 40 Mg Capdr 40 MG PO DAILY, CAP 0 Refills Finasteride (Finasteride) 5 Mg Tab 5 MG PO DAILY for Manage Prostate Problems, #30 TAB 0 Refills Do not crush. Fluticasone-Salmeterol Inh (Advair Diskus Inh) 100-50 Mcg/Blist Aer 1 PUFF INH BID for Asthma Management, #1 INHALER 0 Refills Rinse mouth after use. Rajiv Dixon MD Aug 14, 2017 08:35
[2017-08-14 08:58] VITALS: BP 130/63; PULSE 77; RESP 18; TEMP 98; O2SAT 96
[2017-08-14] MEDS: NS + KCL 20 MEQ INJ 1,000 ML IV SCH (10:40)
--- NOTE | 2017-08-14 15:36 | EKG ---
Date Performed: 08/13/2017 Time Performed: 13:16:08 PTAGE: 72 years EKG: Sinus rhythm WITH FREQUENT VENTRICULAR PREMATURE COMPLEXES LOW QRS VOLTAGE IN EXTREMITY LEADS INCOMPLETE RIGHT BU NDLE BRANCH BLOCK ABNORMAL RHYTHM ECG PREVIOUS TRACING : 08/11/2017 16.43 Compared to prior tracing no significant change DOCTOR: Elinor Vaughn Interpretating Date/Time 08/14/2017 15:36:16
== END 2017-08-14 11:00 | disposition home or self-care (01) | DRG 190 ==
LOC: NEPD 14:36 → NEDA 18:18 → N05B 18:57
PROVIDERS: ADMIT Family Medicine; ATTEND Family Medicine
DX: J44.0 Chronic obstructive pulmonary disease with (acute) lower respiratory infection (principal); J18.9 Pneumonia, unspecified organism; N17.9 Acute kidney failure, unspecified; E86.0 Dehydration; J02.9 Acute pharyngitis, unspecified; I10 Essential (primary) hypertension; K21.9 Gastro-esophageal reflux disease without esophagitis; N40.0 Benign prostatic hyperplasia without lower urinary tract symptoms; E78.5 Hyperlipidemia, unspecified; F17.210 Nicotine dependence, cigarettes, uncomplicated; R19.7 Diarrhea, unspecified; I49.3 Ventricular premature depolarization
CPT/HCPCS: 71010; 80048; 81001; 82550; 82552; 83605; 83735; 84100; 84484; 85025; 87040; 87081; 87880; 93005; 93306; 94150; 94640; 94664; 96365; 96375; J0456; J0696; J1644; J3480; J7030; J7050